=== PATIENT | female | born 1935 | race Two or more races ===

== ENCOUNTER 2016-11-29 23:38 | Inpatient (IN) | payer OTHER ==
[~2016-11-29] VITALS: Ht 157.5 cm; Wt 45.0 kg
[~2016-11-29 23:38] MED LIST: AMLO5TAB2 PO; ASPI81CH49 PO; ATOR80TA PO; CLOP75TA28 PO; LEVO25TA49 PO
[2016-11-30 00:31] LABS: Basophils # (auto) 0.1 uL; Basophils % (auto) 0.8 % (0.0-2.0); Eosinophils # (auto) 0.1 uL; Eosinophils % (auto) 0.8 % (0.0-7.0); Hemoglobin 10.3 g/dL (12.2-16.2); Mean Corpuscular Hemoglobin 29.9 pg (28.0-32.0); Mean Corpuscular Hgb Conc. 33.2 g/dL (32.0-36.0); Mean Corpuscular Volume 90.2 fL (80.0-100.0); Mean Platelet Volume 7.1 fL (7.4-10.4); Monocytes # (auto) 1.1 uL; Monocytes % (auto) 15.5 % (0.0-12.0); Neutrophils % (auto) 68.9 % (37.0-80.0); Platelet Count (auto) 244 10^3/uL (140-450); Red Cell Distribution Width 13.9 % (11.6-16.0); White Blood Cell 7.3 10^3/uL (4.4-10.8)
[2016-11-30 00:45] LABS: INR 1.08 (0.9-1.15); Partial Thromboplastin Time 32.2 sec (22.64-33.71); Prothrombin Time 11.8 sec (9.37-12.3)
[2016-11-30 00:50] LABS: Albumin 2.9 g/dL (3.4-5.0); BUN/Creatinine Ratio 16.7; Calcium 7.8 mg/dL (8.5-10.1); Potassium 3.7 mmol/L (3.5-5.1)
[2016-11-30 00:54] LABS: Bilirubin, Total 0.3 mg/dL (0.2-1.0); Total Protein 7.3 g/dL (6.4-8.2)
[2016-11-30 01:00] LABS: Temperature: 23.5 C (20.0-25.0)
[2016-11-30] MEDS ORDERED: HYDROcodone-ACET 5/325MG TAB PO ONE (04:15)
[2016-11-30] MEDS ORDERED: ACETAMINOPHEN 325 MG TAB PO ONE (04:30)
[2016-11-30] MEDS ORDERED: FUROSEMIDE 20 MG/2 ML VIAL IV ONE (04:30)
[2016-11-30 04:50] LABS: Allen Test Yes; Blood COHb 0.3 % (0.5-1.5); Blood MetHb 0.3 % (0.0-1.5); HCO3 17.1 mmol/L (22-26.0); HHb 9.9 % (0.0-5.0); MODE NASAL CANNULA; O2Hb 89.5 % (94.0-97.0); PCO2 26.5 mmHg (35.0-45.0); PCO2(T) 26.5 mmHg (35.0-45.0); PO2 59.8 mmHg (80.0-100.0); PO2(T) 59.8 mmHg (80.0-100.0); Sample Type Arterial; pH 7.427 (7.350-7.450)
[2016-11-30] MEDS ORDERED: IPRATROPIUM BROM 0.5 MG/2.5ML INH SOL NEB PRN (06:30)
[2016-11-30] MEDS ORDERED: ACETAMINOPHEN 325 MG TAB PO PRN (06:30)
[2016-11-30] MEDS ORDERED: ALBUTEROL SULF 2.5 MG/0.5ML(0.5%) NEB SOLN NEB PRN (06:30)
[2016-11-30] MEDS ORDERED: TEMAZEPAM 15 MG CAP PO PRN (06:30)
[2016-11-30] MEDS ORDERED: MORPHINE SULF INJ 2 MG/ML SYRINGE 1ML IV PRN (06:30)
[2016-11-30] MEDS ORDERED: ONDANSETRON HCL 4 MG/2 ML VIAL IV PRN (06:30)
[2016-11-30] MEDS ORDERED: NITROGLYCERIN 0.4 MG SL TAB SL PRN (06:30)
[2016-11-30] MEDS ORDERED: HYDROcodone-ACET 5/325MG TAB PO PRN (06:30)
[2016-11-30] MEDS ORDERED: LEVOTHYROXINE SODIUM 25 MCG TAB PO SCH (07:00)
[2016-11-30 07:18] LABS: Base Excess -4.1 mmol/L (-2.0-2.0); Blood 02Sat 98.2 % (96-100); Blood COHb 0.3 % (0.5-1.5); Blood MetHb 0.6 % (0.0-1.5); HCO3 19.2 mmol/L (22-26.0); HHb 1.8 % (0.0-5.0); MODE MASK - SIMPLE; O2Hb 97.3 % (94.0-97.0); PCO2 29.5 mmHg (35.0-45.0); PCO2(T) 29.5 mmHg (35.0-45.0); PO2 173.1 mmHg (80.0-100.0); PO2(T) 173.1 mmHg (80.0-100.0); Room 1015-ERT; Sample Type Arterial; pH 7.432 (7.350-7.450)
[2016-11-30] MEDS ORDERED: CLOPIDOGREL BISULFATE 75 MG TAB PO SCH (10:00)
[2016-11-30] MEDS ORDERED: ISOSORBIDE MONONITRATE 60 MG TAB PO SCH (10:00)
[2016-11-30] MEDS ORDERED: ENOXAPARIN SOD 40 MG/0.4 ML SYRINGE SC SCH (10:00)
[2016-11-30] MEDS ORDERED: amLODIPine BESYLATE 5 MG TAB PO SCH (10:00)
[2016-11-30] MEDS ORDERED: FAMOTIDINE 20 MG TAB PO SCH ×2 (10:00)
[2016-11-30] MEDS ORDERED: ENOXAPARIN SOD 30 MG/0.3 ML SYRINGE SC SCH (10:00)
[2016-11-30] MEDS ORDERED: AZITHROMYCIN 500MG/D5W 250ML 250 ML IV SCH (11:30)
[2016-11-30 13:00] VITALS: BP 176/50
[2016-11-30 13:09] VITALS: BP 182/59
[2016-11-30] MEDS ORDERED: cefTRIAXone 1GM/50ML D5W 50 ML IV SCH (15:00)
[2016-11-30] MEDS ORDERED: FUROSEMIDE 20 MG TAB PO SCH (18:00)
[2016-11-30] MEDS ORDERED: ATORVASTATIN 20 MG TAB PO SCH (22:00)
== END 2016-11-30 15:20 | disposition short-term general hospital (02) | DRG 291 ==
LOC: EDBD 23:38 → ER 23:41 → TELE 23:42 → TELE-CENTR 11-30 08:53
PROVIDERS: ADMIT Nurse Practitioner; ATTEND Nurse Practitioner
DX: I13.2 Hypertensive heart and chronic kidney disease with heart failure and with stage 5 chronic kidney disease, or end stage renal disease (principal); J18.9 Pneumonia, unspecified organism; I50.33 Acute on chronic diastolic (congestive) heart failure; N18.5 Chronic kidney disease, stage 5; J44.0 Chronic obstructive pulmonary disease with (acute) lower respiratory infection; E44.0 Moderate protein-calorie malnutrition; Z68.1 Body mass index [BMI] 19.9 or less, adult; E78.5 Hyperlipidemia, unspecified; I25.10 Atherosclerotic heart disease of native coronary artery without angina pectoris; R09.02 Hypoxemia; Z95.1 Presence of aortocoronary bypass graft; Z98.61 Coronary angioplasty status; I25.2 Old myocardial infarction; Z88.2 Allergy status to sulfonamides; Z91.041 Radiographic dye allergy status; Z79.82 Long term (current) use of aspirin; Z79.899 Other long term (current) drug therapy; Z82.49 Family history of ischemic heart disease and other diseases of the circulatory system
CPT/HCPCS: 36415; 36600; 71010; 80053; 82805; 83605; 83880; 84484; 85025; 85610; 85730; 87040; 93005; 96374; J0696